=== PATIENT | male | born 1950 | race Caucasian/White ===

== ENCOUNTER → 2016-10-14 | Outpatient (CLI) | payer MEDICARE, BC ==
[2016-10-14 13:29] LABS: ALKALINE PHOSPHATASE 73 U/L (45-117); ALT (GPT) 39 U/L (12-78); ANION GAP 8 MEQ/L (5-15); AST (GOT) 20 U/L (15-37); BLOOD UREA NITROGEN 18 MG/DL (7-18); CHLORIDE 105 MEQ/L (98-107); FREE T4 1.46 NG/DL (0.76-1.46); GLOMERULAR FILTRATION RATE 80 ML/MIN (>89); GLUCOSE,FASTING 100 MG/DL (74-99); HDL CHOLESTEROL 50.4 MG/DL (40.0-60.0); LDL CHOLESTEROL 120 MG/DL (0-99); POTASSIUM 4.3 MEQ/L (3.5-5.1); SODIUM (NA) 141 MEQ/L (136-145); TOTAL BILIRUBIN ADULT 0.4 MG/DL (0.2-1.0)
== END ==
LOC: PLAB 09:48
PROVIDERS: ATTEND Family Medicine
DX: E78.5 Hyperlipidemia, unspecified (principal); I10 Essential (primary) hypertension
CPT/HCPCS: 36415; 80053; 80061; 84439; 84443